=== PATIENT | female | born 1995 ===

== ENCOUNTER 2018-02-15 15:51 | Emergency (ER) | payer BC ==
[2018-02-15 15:55] VITALS: BMI 26.4
[2018-02-15 15:59] VITALS: BP 132/80; PULSE 64; RESP 18; TEMP 98.7; O2SAT 99
--- NOTE | 2018-02-15 16:34 | C.PDOC ---
History Of Present Illness 23 year old female presents to the ED for evaluation of right 5th toe injury which she sustained blunt trauma prior to arrival. Patient reports mild swelling and bruising to the injured toe. Pt denies obvious deformities to Right foot, weakness, sensory or vascular deficits to Right foot. Ambulate to Ed for evaluation, not in any apparent distress. Time Seen by Provider: 02/15/18 15:56 Chief Complaint (Nursing): Lower Extremity Problem/Injury History Per: Patient History/Exam Limitations: no limitations Onset/Duration Of Symptoms: Hrs Current Symptoms Are (Timing): Still Present Additional History Per: Patient Past Medical History Reviewed: Historical Data, Nursing Documentation, Vital Signs Vital Signs: Last Vital Signs Temp 98.7 F 02/15/18 15:55 Pulse 64 02/15/18 15:55 Resp 18 02/15/18 15:55 BP 132/80 02/15/18 15:55 Pulse Ox 99 02/15/18 16:41 - Medical History PMH: Asthma (in childhood) Surgical History: No Surg Hx Family History: States: Unknown Family Hx - Social History Hx Alcohol Use: Yes Hx Substance Use: Yes - Immunization History Hx Tetanus Toxoid Vaccination: Yes Hx Pneumococcal Vaccination: No Review Of Systems Except As Marked, All Systems Reviewed And Found Negative. Constitutional: Negative for: Fever, Chills Musculoskeletal: Positive for: Other (right 5th toe injury ) Skin: Positive for: Lesions Neurological: Negative for: Weakness, Numbness Physical Exam - Physical Exam Appears: Well, Non-toxic, No Acute Distress Skin: Normal Color, Warm, Other (superficial laceration to plantar aspect Right foot at base of Left 5th toe. No wound discahrges/bleeding. no wound FB.) Extremity: Normal ROM (Right foot), Tenderness (Right 5th proximal phalanx with scant ecchymoses medial aspect. No palpable deformity.), Capillary Refill (less than 2sec to Right foot), No Deformity, No Swelling DTR: Ankle (R): 2+ Neurological/Psych: Oriented x3, Normal Speech, Normal Motor, Normal Sensation ED Course And Treatment O2 Sat by Pulse Oximetry: 99 (on RA) Pulse Ox Interpretation: Normal - Other Rad Right 5th toe X-Ray: Interpreted by Me, Viewed By Me Interpretation: (-) acute fx or dislocation Progress Note: Right foot 5th digit XR ordered and reviewed. On re-eval, pt is afebrile, hemodynamicaly stable. Non-toxic. Ambulatory in ED with stable gait. Right foot: exam c/w Right 5th toe contusion, superificla laceration plantar aspect. NO edema, no deformity. FAROM, no neurovascular deficits. Imaging review (-) acute fx or dislocation. laceration cleaned and repaired with skin adhesive. Pt advised. ref. to f/u with Podiatry in 2 days for re- evaluation as need. return if any new changes. Laceration - Laceration Repair Right 5th toe Wound Length (In cm): 1cm Description Of Wound: Linear Wound Examination: Irrigated With Saline, No FB With Wound Exploration, No Tendon Injury With Wound Exploration Wound Closure: Skin Glue Wound Complexity: Simple Disposition Counseled Patient/Family Regarding: Studies Performed, Diagnosis, Need For Followup - Disposition Referrals: [facility] [Outside] Disposition: HOME/ ROUTINE Disposition Time: 16:20 Condition: STABLE Additional Instructions: Keep wound dry for 2 days Follow up with Podiatry Clinic on Wednesday from noon-3PM as need for further evaluation of toe injury. return if any new changes. Instructions: Laceration Repair With Glue (DC), Toe Injury Forms: Accompanied To ED By:, Dexterra (Slovenian) - Clinical Impression Clinical Impression: Contusion, toe, Laceration of toe - PA / CLINICAL DOCUMENTATION IMPROVEMENT SPECIALIST / Resident Statement MD/DO has reviewed & agrees with the documentation as recorded. - Scribe Statement The provider has reviewed the documentation as recorded by the Scribe (Letitia Lau) All medical record entries made by the Scribe were at my direction and personally dictated by me. I have reviewed the chart and agree that the record accurately reflects my personal performance of the history, physical exam, medical decision making, and the department course for this patient. I have also personally directed, reviewed, and agree with the discharge instructions and disposition.
--- NOTE | 2018-02-15 17:11 | RAD ---
PROCEDURE: HISTORY: injury COMPARISON: None TECHNIQUE: Four views FINDINGS: On 1 of 4 images there is lucency over the her aspect of the 5th fused middle distal phalanx this may represent the remnant of an incompletely fused segment cortical fracture noted. Clinical correlation with point tenderness recommended. IMPRESSION: Lucency over plantar aspect distal phalangeal region - here the middle and distal phalanx appear fused -a incompletely fusion here is 1 consideration. A tiny nondisplaced fracture is another. This appearance is not appreciated on the any of the other images. Correlate clinically
== END 2018-02-15 16:38 | disposition home or self-care (01) ==
LOC: C.ER 15:51
DX: S91.114A Laceration without foreign body of right lesser toe(s) without damage to nail, initial encounter (principal); S90.121A Contusion of right lesser toe(s) without damage to nail, initial encounter; X58.XXXA Exposure to other specified factors, initial encounter